=== PATIENT | male | born 1965 | race African-American/Black ===

== ENCOUNTER 2017-11-05 07:47 | Emergency (ER) | payer BC ==
[~2017-11-05] VITALS: Ht 180.3 cm; Wt 81.6 kg
[2017-11-05 08:40] LABS: HEMATOCRIT 38.2 % (38.0-50.0); HEMOGLOBIN 13.2 G/DL (12.5-16.6); MCH 31.4 PG (29.0-34.0); MCHC 34.6 G/DL (30.0-36.0); MCV 90.7 FL (86-99); PLATELET COUNT 159 K/uL (156-360); RBC DIS.WIDTH-CV 11.9 % (11.8-14.6); RBC DIS.WIDTH-SD 39.6 % (39-53); RED BLOOD COUNT 4.21 M/uL (4.00-5.50); WHITE BLOOD COUNT 4.7 K/uL (4.1-10.2)
[2017-11-05 08:52] LABS: CHLORIDE 105 mEq/L (99-109); POTASSIUM 3.7 mEq/L (3.7-5.4); SODIUM 138 mEq/L (136-147)
[2017-11-05 08:53] LABS: GLUCOSE 91 mg/dL (70-99)
[2017-11-05 08:57] LABS: CREATININE 1.1 mg/dL (0.6-1.3)
[2017-11-05 08:58] LABS: UREA NITROGEN (BUN) 14 mg/dL (9-23)
[2017-11-05 09:00] LABS: GFR ESTIMATE (CALCULATED) > 59 mL/min/ (58.99-99999)
[2017-11-05 09:23] LABS: SOURCE URINE
[2017-11-05 09:29] LABS: APPEARANCE SL.HAZY ((CLEAR)); BILIRUBIN NEGATIVE; BLOOD NEGATIVE; COLOR YELLOW ((YELLOW)); GLUCOSE (STRIP) NEGATIVE; KETONES NEGATIVE; LEUKOCYTES LARGE; NITRITE NEGATIVE; PROTEIN (STRIP) NEGATIVE; SPECIFIC GRAVITY 1.027 (1.000-1.030); UROBILINOGEN 0.2 MG/DL (0.2-1.0)
[2017-11-05 09:34] LABS: BACTERIA RARE /HPF; EPITHELIAL CELLS NONE SEEN /HPF; HYALINE CASTS 0-5 /LPF; MUCUS TRACE /LPF; RED BLOOD CELLS 0-5 /HPF (0-5); UCUL ADDED? YES; WHITE BLOOD CELLS TNTC /HPF (0-5)
[2017-11-05 10:17] VITALS: BP 127/93
[2017-11-07 12:51] LABS: CHLAMYDIA TRACHOMATIS NEGATIVE; NEISSERIA GONORRHOEAE POSITIVE
== END 2017-11-05 10:23 | disposition home or self-care (01) ==
LOC: EME 07:47
PROVIDERS: Nurse Practitioner Family
DX: R30.0 Dysuria (principal); R36.9 Urethral discharge, unspecified; Z11.3 Encounter for screening for infections with a predominantly sexual mode of transmission
CPT/HCPCS: 80048; 81003; 85027; 87086; 87491; 87591; 99281; 99284; J0696